=== PATIENT | female | born 1960 | race African-American/Black ===

== ENCOUNTER 2018-05-03 18:41 | Emergency (ER) | payer MEDICAID ==
[~2018-05-03] VITALS: Ht 162.6 cm; Wt 61.0 kg
[~2018-05-03 18:41] MED LIST: ALBU2.5V13 IH; DARU800T PO; EMTR1TAB11 PO; ETRA25TA PO; RALT400T PO; RITO100T PO; [UNRECOGNIZED DRUG - CODE] PO
[2018-05-03] MEDS ORDERED: METHYLPREDNISOLONE SOD SUCC 125 MG/2 ML VIAL IV STA (20:06)
[2018-05-03] MEDS ORDERED: IPRATROPIUM BROMIDE (0.02%) 0.5MG/2.5ML NEB HHN STA (20:06)
[2018-05-03] MEDS ORDERED: ALBUTEROL (0.083%) 2.5MG/3ML NEB HHN STA (20:06)
[2018-05-03 21:29] LABS: BASOPHILS % 0.4 % (0.0-2.0); EOSINOPHILS % 4.7 % (0.0-5.0); HEMATOCRIT. 36.4 % (36.0-48.0); HEMOGLOBIN. 12.3 g/dL (12.0-16.0); LYMPHOCYTES % 21.6 % (20.0-50.0); MEAN CORPUSCULAR HEMOGLOBIN 33.6 pg (28.0-32.0); MEAN CORPUSCULAR VOLUME 99.9 fL (81.0-99.0); MEAN PLATELET VOLUME 9.4 fl (7.4-10.4); MONOCYTES % 4.8 % (2.0-8.0); NEUTROPHILS % 68.5 % (40.0-76.0); PLATELET 217 x1000/uL (130-400); RED BLOOD CELL COUNT 3.64 mill/uL (4.2-5.4); RED CELL DISTRIBUTION WIDTH 14.3 % (11.6-14.6)
[2018-05-03 21:32] LABS: CHLORIDE 107 mEq/L (98-107)
[2018-05-03 23:20] VITALS: BP 112/84
== END 2018-05-03 23:29 | disposition home or self-care (01) ==
LOC: ER 18:49
DX: J45.901 Unspecified asthma with (acute) exacerbation (principal); I10 Essential (primary) hypertension; Z79.899 Other long term (current) drug therapy; Z88.0 Allergy status to penicillin
CPT/HCPCS: 36415; 71045; 80053; 85025; 93005; 94640; 96374; 99284; J2930; J7611

== ENCOUNTER 2019-03-14 12:40 | Inpatient (IN) | payer MEDICAID ==
[~2019-03-14] VITALS: Ht 165.1 cm; Wt 78.5 kg
[2019-03-14] MEDS ORDERED: ALBUTEROL (0.083%) 2.5MG/3ML NEB HHN STA (12:54)
[2019-03-14] MEDS ORDERED: IPRATROPIUM BROMIDE (0.02%) 0.5MG/2.5ML NEB HHN STA (12:54)
[2019-03-14] MEDS ORDERED: METHYLPREDNISOLONE SOD SUCC 125 MG/2 ML VIAL IV STA (12:54)
[2019-03-14] MEDS ORDERED: MAGNESIUM 2 G PREMIX 50 ML IV STA (12:54)
[2019-03-14] MEDS ORDERED: ACETAMINOPHEN 325MG TABLET PO STA (12:54)
[2019-03-14] MEDS ORDERED: LEVOFLOXACIN 750MG PREMIX 150 ML IV ONE (13:00)
[2019-03-14] MEDS ORDERED: SODIUM CHLORIDE 0.9% 1000ML BAG (SEPSIS BOLUS) IV ONE (13:00)
[2019-03-14 14:22] LABS: BASOPHILS % 0.4 % (0.0-2.0); EOSINOPHILS % 0.2 % (0.0-5.0); HEMATOCRIT. 35.7 % (36.0-48.0); MEAN CORPUSCULAR HEMOGLOBIN 33.6 pg (28.0-32.0); MEAN CORPUSCULAR VOLUME 99.7 fL (81.0-99.0); MEAN PLATELET VOLUME 10.3 fl (7.4-10.4); MONOCYTES % 6.1 % (2.0-8.0); NEUTROPHILS % 64.3 % (40.0-76.0); PLATELET 128 x1000/uL (130-400); RED BLOOD CELL COUNT 3.58 mill/uL (4.2-5.4)
[2019-03-14 14:23] LABS: CHLORIDE 110 mEq/L (98-107)
[2019-03-14 14:25] LABS: PROTHROMBIN TIME 10.4 sec (9.6-11.0)
[2019-03-14 18:00] VITALS: BP 110/70
[2019-03-14 18:11] VITALS: BP 110/70
[2019-03-14] MEDS ORDERED: CEFTRIAXONE 1 G PREMIX 50 ML IV SCH (18:30)
[2019-03-14] MEDS ORDERED: HYDROCODONE/ACETAMINOPHEN 5/325MG TABLET PO PRN (18:45)
[2019-03-14] MEDS ORDERED: ACETAMINOPHEN 325MG TABLET PO PRN (18:45)
[2019-03-14] MEDS ORDERED: ONDANSETRON HCL 4MG/2ML INJ IV PRN (18:45)
[2019-03-14] MEDS ORDERED: CLONIDINE 0.1MG TABLET PO PRN (18:45)
[2019-03-14] MEDS ORDERED: DOCUSATE SODIUM 100MG CAPSULE PO PRN (18:45)
[2019-03-14] MEDS ORDERED: IPRATROPIUM/ALBUTEROL 0.5-3(2.5)MG/3ML NEB HHN PRN (18:45)
[2019-03-14 20:00] VITALS: BP 136/70
[2019-03-14] MEDS ORDERED: AZITHROMYCIN 500 MG in DEXT 5% WATER 250 ML IV SCH (21:00)
[2019-03-14] MEDS: GUAIFENESIN-DM 200MG-20MG/10ML UDC PO PRN (22:17)
[2019-03-14] MEDS: PREDNISONE 20MG TABLET PO SCH (22:17)
[2019-03-14] MEDS: SODIUM CHLORIDE 0.9% 1,000 ML IV SCH (22:18)
[2019-03-15 03:05] LABS: CLARITY URINE CLEAR (CLEAR); COLOR URINE YELLOW (YELLOW); KETONES URINE NEGATIVE (NEGATIVE); LEUKOCYTE ESTERASE URINE NEGATIVE (NEGATIVE); NITRITE URINE NEGATIVE (NEGATIVE); OCCULT BLOOD URINE NEGATIVE (NEGATIVE); PH URINE 5.5 (4.5-8.0); PROTEIN URINE NEGATIVE (NEGATIVE); SPECIFIC GRAVITY URINE 1.009 (1.005-1.030); UROBILINOGEN URINE 0.2 E.U./dL (0.2-1.0)
[2019-03-15 04:00] VITALS: BP 139/69
[2019-03-15 08:00] VITALS: BP 138/84
[2019-03-15] MEDS: PREDNISONE 20MG TABLET PO SCH (09:02)
[2019-03-15] MEDS: GUAIFENESIN-DM 200MG-20MG/10ML UDC PO PRN (09:07)
[2019-03-15 10:32] LABS: BASOPHILS % 0.1 % (0.0-2.0); HEMATOCRIT. 36.3 % (36.0-48.0); LYMPHOCYTES % 16.4 % (20.0-50.0); MEAN CORPUSCULAR HEMOGLOBIN 33.2 pg (28.0-32.0); MEAN CORPUSCULAR VOLUME 100.1 fL (81.0-99.0); MEAN PLATELET VOLUME 10.2 fl (7.4-10.4); MONOCYTES % 5.2 % (2.0-8.0); NEUTROPHILS % 78.3 % (40.0-76.0); PLATELET 136 x1000/uL (130-400); RED BLOOD CELL COUNT 3.62 mill/uL (4.2-5.4); RED CELL DISTRIBUTION WIDTH 14.2 % (11.6-14.6)
[2019-03-15] MEDS ORDERED: BUDESONIDE 0.5MG/2ML NEB HHN SCH (11:00)
[2019-03-15 11:01] LABS: CHLORIDE 113 mEq/L (98-107)
[2019-03-15 11:10] LABS: LDL CHOLESTEROL 79 mg/dL (5-100)
[2019-03-15 11:12] LABS: HDL CHOLESTEROL 73 mg/dL (40-59)
[2019-03-15 11:23] LABS: HCG SCREEN NEGATIVE
[2019-03-15 12:00] VITALS: BP 138/79
[2019-03-15] MEDS ORDERED: IPRATROPIUM/ALBUTEROL 0.5-3(2.5)MG/3ML NEB HHN SCH (12:00)
[2019-03-15] MEDS ORDERED: DOLU50TA MT (13:36)
[2019-03-15] MEDS ORDERED: GABA-290 MT (13:36)
[2019-03-15] MEDS ORDERED: EMTR1TAB12 MT (13:36)
[2019-03-15] MEDS ORDERED: LEVOFLOXACIN 750MG PREMIX 150 ML IV SCH (14:00)
[2019-03-15] MEDS: SODIUM CHLORIDE 0.9% 1,000 ML IV SCH (16:39)
[2019-03-17 10:11] LABS: ABSOLUTE MONOCYTES 0.4 x10E3/uL (0.1-0.9); ABSOLUTE NEUTROPHILS 8.6 x10E3/uL (1.4-7.0); BASOPHILS 0 % (Not Estab.); HEMATOCRIT 36.1 % (34.0-46.6); HEMOGLOBIN 11.9 g/dL (11.1-15.9); IMMATURE GRANULOCYTES 0 % (Not Estab.); LYMPHOCYTES 18 % (Not Estab.); MEAN CORPUSCULAR HEMOGLOBIN 32.2 pg (26.6-33.0); MEAN CORPUSCULAR VOLUME 98 fL (79-97); MONOCYTES 4 % (Not Estab.); NEUTROPHILS 78 % (Not Estab.); PLATELETS 166 x10E3/uL (150-450); RED CELL DISTRIBUTION WIDTH 14.6 % (12.3-15.4)
[2019-03-17 15:10] LABS: % CD 3 POS. LYMPHOCYTES 82.3 % (57.5-86.2); % CD 4 POS. LYMPHOCYTES 38.9 % (30.8-58.5); % CD 8 POS. LYMPH 43.3 % (12.0-35.5); ABSOLUTE CD 3 1646 /uL (622-2402); ABSOLUTE CD 4 HELPER 778 /uL (359-1519); ABSOLUTE CD 8 SUPPRESSOR 866 /uL (109-897)
== END 2019-03-15 18:16 | disposition left against medical advice (07) | DRG 720 ==
LOC: ER 12:40 → 7WST 14:56 → EDBEDREQ 14:59 → ENRESERV 15:39
PROVIDERS: ADMIT Internal Medicine; ATTEND Internal Medicine
DX: A41.9 Sepsis, unspecified organism (principal); J96.00 Acute respiratory failure, unspecified whether with hypoxia or hypercapnia; J44.0 Chronic obstructive pulmonary disease with (acute) lower respiratory infection; D69.6 Thrombocytopenia, unspecified; J44.1 Chronic obstructive pulmonary disease with (acute) exacerbation; J45.901 Unspecified asthma with (acute) exacerbation; N18.9 Chronic kidney disease, unspecified; Z53.29 Procedure and treatment not carried out because of patient's decision for other reasons; K52.9 Noninfective gastroenteritis and colitis, unspecified; I12.9 Hypertensive chronic kidney disease with stage 1 through stage 4 chronic kidney disease, or unspecified chronic kidney disease; J20.9 Acute bronchitis, unspecified; N39.41 Urge incontinence; Z88.0 Allergy status to penicillin; Z82.49 Family history of ischemic heart disease and other diseases of the circulatory system; Z79.899 Other long term (current) drug therapy
CPT/HCPCS: 36415; 71045; 80048; 80061; 81003; 83036; 83605; 83880; 84134; 84145; 84484; 84703; 86359; 86360; 87493; 89055; 93005; 93306; 94644; 99285; J0456; J1956; J2930; J3475; J7030; J7060; J7512; J7611